=== PATIENT | female | born 1990 | race Caucasian/White ===

== ENCOUNTER 2017-12-14 09:42 | Emergency (ER) | payer OTHER ==
[2017-12-14] MEDS: NS 1,000 ML IV (10:31)
[2017-12-14] MEDS: KETOROLAC 30 MG/ML VIAL (J1885) IV (10:31)
[2017-12-14] MEDS: ONDANSETRON 4MG/2ML VIAL (J2405) IV (10:31)
[2017-12-14] MEDS: diphenhydrAMINE INJ 50MG/ML VIAL (J1200) IV (10:31)
== END 2017-12-14 11:44 | disposition home or self-care (01) ==
LOC: M ED 09:42
DX: G43.909 Migraine, unspecified, not intractable, without status migrainosus (principal); J01.90 Acute sinusitis, unspecified; F33.9 Major depressive disorder, recurrent, unspecified; Z88.8 Allergy status to other drugs, medicaments and biological substances; Z91.048 Other nonmedicinal substance allergy status; F17.210 Nicotine dependence, cigarettes, uncomplicated
CPT/HCPCS: J1200